=== PATIENT | male | born 1970 | race Caucasian/White ===

== ENCOUNTER → 2017-02-27 | Outpatient (CLI) | payer OTHER | END | disposition home or self-care (01) | LOC: CFH 16:19 | PROVIDERS: ATTEND Nurse Practitioner Family | DX: R10.31 Right lower quadrant pain (principal) | CPT/HCPCS: 76857 ==

== ENCOUNTER 2017-04-05 16:18 | Emergency (ER) | payer OTHER ==
[~2017-04-05] VITALS: Ht 175.3 cm; Wt 88.5 kg
[2017-04-05 16:59] LABS: HEMATOCRIT 49.8 % (39.2-51.8); WHITE BLOOD COUNT 8.6 x10^3/uL (3.4-10)
[2017-04-05] MEDS ORDERED: SODIUM CHLORIDE FLUSH 10ML SYR IVF ONE (17:00)
[2017-04-05 17:09] LABS: BLOOD UREA NITROGEN 11 mg/dL (7-18)
[2017-04-05 18:39] VITALS: BP 136/94
== END 2017-04-05 18:43 | disposition home or self-care (01) ==
LOC: ED 18:37
DX: R10.31 Right lower quadrant pain (principal); R10.32 Left lower quadrant pain
CPT/HCPCS: 36415; 74176; 80048; 81003; 82040; 85025; 99285

== ENCOUNTER 2017-11-07 08:35 | Inpatient (IN) | payer OTHER ==
[~2017-11-07] VITALS: Ht 175.3 cm; Wt 87.5 kg
[2017-11-07] MEDS ORDERED: LISI-170 PO (09:07)
[2017-11-07] MEDS ORDERED: FLUT200B INH (09:08)
[2017-11-07 09:38] LABS: BASOPHILS # (AUTO) 0.02 x10^3/uL (0-0.1); BASOPHILS % (AUTO) 0 % (0-1); EOSINOPHILS # (AUTO) 0.06 x10^3/uL (0-0.4); EOSINOPHILS % (AUTO) 1 % (1-7); LYMPHOCYTES # (AUTO) 1.53 x10^3/uL (1-3.4); LYMPHOCYTES % (AUTO) 24 % (22-44); MD NO; MEAN CORPUSCULAR HEMOGLOBIN 32.3 pg (27.5-34.5); MEAN CORPUSCULAR HGB CONC 34.3 g/dL (33.2-36.2); MEAN CORPUSCULAR VOLUME 94.3 fL (81-97); MEAN PLATELET VOLUME 7.9 fL (7.4-10.4); MONOCYTES # (AUTO) 0.53 x10^3/uL (0.2-0.8); MONOCYTES % (AUTO) 8 % (2-9); NEUTROPHILS # (AUTO) 4.26 x10^3/uL (1.8-6.8); NEUTROPHILS % (AUTO) 67 % (42-75); PLATELET COUNT 259 x10^3/uL (130-400); RED BLOOD COUNT 5.11 x10^6/uL (4.38-5.82)
[2017-11-07 09:49] LABS: ALBUMIN 3.9 g/dL (3.4-5.0); ANION GAP 8 mmol/L (5-15); CALCIUM 8.9 mg/dL (8.5-10.1); CHLORIDE 106 mmol/L (98-107); CREATININE 0.99 mg/dL (0.7-1.3)
[2017-11-07 09:53] LABS: TROPONIN I < 0.015 ng/mL (0.000-0.045)
[2017-11-07] MEDS ORDERED: SODIUM CHLORIDE FLUSH 10ML SYR IVF PRN (11:00)
[2017-11-07 12:30] VITALS: BP 160/97
[2017-11-07] MEDS ORDERED: ONDANSETRON 2MG/ML, 2ML IVPush PRN (13:00)
[2017-11-07] MEDS ORDERED: MORPHINE SULFATE 4 MG/ML, 1ML IVPush PRN (13:00)
[2017-11-07] MEDS ORDERED: NITROGLYCERIN 0.4 MG BOTTLE (25 TABS) SL PRN (13:00)
[2017-11-07] MEDS ORDERED: POLYETHYLENE GLYCOL 17 GM PACKET PO PRN (13:00)
[2017-11-07] MEDS ORDERED: BISACODYL 10 MG SUPP PR PRN (13:00)
[2017-11-07] MEDS ORDERED: LABETALOL 5MG/ML, 20ML IVPush PRN (13:00)
[2017-11-07] MEDS ORDERED: DOCUSATE 100 MG CAPSULE PO PRN (13:00)
[2017-11-07] MEDS ORDERED: ENALAPRILAT 1.25 MG/ML, 2ML IVPush PRN (13:00)
[2017-11-07] MEDS ORDERED: ACETAMINOPHEN 325 MG TABLET PO PRN (13:00)
[2017-11-07 14:10] VITALS: BP 146/94
[2017-11-07 15:49] LABS: TROPONIN I < 0.015 ng/mL (0.000-0.045)
[2017-11-07] MEDS ORDERED: ALBUTEROL SULFATE 2.5 MG/3 ML NPPB PRN (16:00)
[2017-11-07 19:27] VITALS: BP 153/98
[2017-11-07] MEDS: FAMOTIDINE 20 MG TABLET PO SCH (20:28)
[2017-11-07 21:26] LABS: TROPONIN I < 0.015 ng/mL (0.000-0.045)
[2017-11-08 01:18] VITALS: BP 116/77
[2017-11-08 05:19] LABS: ANION GAP 5 mmol/L (5-15); CALCIUM 8.9 mg/dL (8.5-10.1); CHLORIDE 106 mmol/L (98-107)
[2017-11-08 05:30] LABS: CHOL/HDL RATIO 3.4; CHOLESTEROL, TOTAL 214 mg/dL (140-239); CREATININE 1.01 mg/dL (0.7-1.3); HDL CHOL % 29 % (26-37); HDL CHOLESTEROL (DIRECT) 63 mg/dL (40-60); LDL CHOLESTEROL,CALCULATED 118 mg/dL (54-169); LDL/HDL RATIO 1.9 (0.5-3.0); TRIGLYCERIDES 166 mg/dL (50-200); VLDL CHOLESTEROL 33 mg/dL (0-25)
[2017-11-08] MEDS ORDERED: ASPIRIN 325 MG TABLET EC PO SCH (06:00)
[2017-11-08 07:40] VITALS: BP 119/83
[2017-11-08] MEDS: FAMOTIDINE 20 MG TABLET PO SCH (08:01)
[2017-11-08] MEDS ORDERED: FLUTICASONE FUROATE 200MCG/INH INH SCH (09:00)
[2017-11-08] MEDS ORDERED: LISINOPRIL 20 MG TABLET PO SCH (09:00)
[2017-11-08 13:34] VITALS: BP 135/85
[2017-11-08] MEDS ORDERED: ASPI-496 PO (17:02)
== END 2017-11-08 19:02 | disposition home or self-care (01) | DRG 206 ==
LOC: ED 09:44 → EDIP 10:41 → 5SO 12:05
PROVIDERS: ADMIT Hospitalist; ATTEND Hospitalist
PROC: 5A09357 Assistance with Respiratory Ventilation, Less than 24 Consecutive Hours, Continuous Positive Airway Pressure (ICD-10-PCS; principal; 2017-11-08)
DX: M94.0 Chondrocostal junction syndrome [Tietze] (principal); F41.9 Anxiety disorder, unspecified; G47.33 Obstructive sleep apnea (adult) (pediatric); I10 Essential (primary) hypertension; J44.9 Chronic obstructive pulmonary disease, unspecified; I34.1 Nonrheumatic mitral (valve) prolapse; I34.0 Nonrheumatic mitral (valve) insufficiency; J45.909 Unspecified asthma, uncomplicated; Z90.89 Acquired absence of other organs; Z79.899 Other long term (current) drug therapy; Z83.3 Family history of diabetes mellitus
CPT/HCPCS: 36415; 71045; 78452; 80048; 80061; 82040; 83735; 84443; 84484; 85025; 85379; 93005; 93017; 99285; A9502; C9898